=== PATIENT | female | born 1985 ===

== ENCOUNTER 2017-01-04 19:19 | Emergency (ER) | payer SELFPAY ==
[2017-01-04 19:19] VITALS: BMI 36.1
[2017-01-04 19:46] VITALS: BP 110/71; PULSE 95; RESP 16; TEMP 99.1; O2SAT 100
[2017-01-04] MEDS ORDERED: Sodium Chloride 0.9% 1,000 ML IV STA (21:28)
--- NOTE | 2017-01-04 21:32 | ED PDOC ---
HPI: General Adult Time Seen by Provider: 01/04/17 21:16 Chief Complaint (Nursing): Dizziness/Lightheaded Chief Complaint (Provider): dizziness History Per: Patient History/Exam Limitations: no limitations Onset/Duration Of Symptoms: Days (2 weeks), Waxing/Waning Current Symptoms Are (Timing): Still Present Additional History Per: Patient Additional Complaint(s): 31 y/o female presents for eval of intermittent dizziness x 2 weeks. Associated nausea/vomiting, and generalized headaches. Patient notes dizziness whether laying down at rest of moving about, states she feels like she is spinning. Denies fever, neck pain/stiffness, extremity numbness/weakness, vision changes, chest pain, shortness of breath, palpitations, abdominal pain, recent travel, sick contacts, urinary symptoms, vaginal bleeding/discharge. Past Medical History Reviewed: Historical Data, Nursing Documentation, Vital Signs Vital Signs: Last Vital Signs Temp 99.1 F 01/04/17 19:42 Pulse 95 H 01/04/17 19:42 Resp 16 01/04/17 19:42 BP 110/71 01/04/17 19:42 Pulse Ox 100 01/04/17 22:52 - Medical History PMH: No Chronic Diseases - Surgical History Surgical History: (3 months ago) Other surgeries: cataract left eye - Family History Family History: States: Unknown Family Hx - Immunization History Hx Tetanus Toxoid Vaccination: No Hx Influenza Vaccination: No Hx Pneumococcal Vaccination: No - Home Medications Home Medications: Ambulatory Orders Medication Instructions Recorded Pantoprazole Sodium [Protonix] 20 mg PO DAILY #15 ect 10/31/15 Polyethylene Glycol 3350 [Miralax] 17 gm PO DAILY #270 ml 10/31/15 Ciprofloxacin/Ciprofloxa HCl 500 mg PO BID #10 ter 04/07/16 [Ciprofloxacin] - Allergies Allergies/Adverse Reactions: Allergies Allergy/AdvReac Type Severity Reaction Status Date / Time No Known Allergies Allergy Verified 04/07/16 17:57 Review of Systems ROS Statement: Except As Marked, All Systems Reviewed And Found Negative Neurological: Positive for: Headache, Dizziness Physical Exam - Reviewed Nursing Documentation Reviewed: Yes Vital Signs Reviewed: Yes - Physical Exam Appears: Positive for: Well, Non-toxic, No Acute Distress Head Exam: Positive for: ATRAUMATIC, NORMAL INSPECTION, NORMOCEPHALIC Skin: Positive for: Normal Color Eye Exam: Positive for: Normal appearance, EOMI, Other (left eye cataract) ENT: Positive for: Normal ENT Inspection Cardiovascular/Chest: Positive for: Regular Rate, Rhythm Respiratory: Positive for: Normal Breath Sounds Gastrointestinal/Abdominal: Positive for: Normal Exam Back: Positive for: Normal Inspection Extremity: Positive for: Normal ROM Neurologic/Psych: Positive for: Alert, Oriented - Laboratory Results Result Diagrams: 01/04/17 22:16 01/04/17 22:16 Urine POC: Positive Urine dip results: Positive for: Leukocyte Esterase, Blood. Negative for: Nitrate, Ketones - ECG O2 Sat by Pulse Oximetry: 100 - Progress ED Course And Treament: labs, IV fluids, PO tylenol On re-eval, patient states she is feeing better; tolerating PO. Patient educated on findings, advised follow up Writing Manager. Take vitamins. Return to ED for worsening/concerning symptoms. Disposition - Clinical Impression Clinical Impression: Nausea/vomiting in - Patient ED Disposition Is Patient to be Admitted: No Counseled Patient/Family Regarding: Studies Performed, Diagnosis, Need For Followup - Disposition [facility]errals: [facility] [Outside] Disposition: Routine/Home Disposition Time: 00:34 Condition: IMPROVED Instructions: Morning Sickness (ED), (ED) Print Language: MACEDONIAN
[2017-01-04 22:18] LABS: BASO # 0.1 K/uL (0.0-0.2); EOS # 0.1 K/uL (0.0-0.7); EOS % 1.8 % (0.0-4.0); HEMATOCRIT 33.7 % (34.0-47.0); LYMPH # 2.4 K/uL (1.0-4.3); LYMPH % 29.1 % (20.0-40.0); MEAN CELL VOLUME 78.5 fl (81.0-99.0); MEAN CORPUSCULAR HGB CONC 31.9 g/dL (33.0-37.0); MEAN PLATELET VOLUME 9.3 fl (7.2-11.7); MONO # 0.6 K/uL (0.0-0.8); MONO % 7.4 % (0.0-10.0); NEUT # 4.9 K/uL (1.8-7.0); NEUT % 60.7 % (50.0-75.0); RED CELL DISTRIBUTION WIDTH 17.1 % (11.5-14.5); WHITE BLOOD COUNT 8.1 K/uL (4.8-10.8)
[2017-01-04 22:32] LABS: ALB/GLOB RATIO 1.3 (1.0-2.1); ALKALINE PHOSPHATASE 71 U/L (38-126); ALT/SGPT 43 U/L (9-52); AST/SGOT 26 U/L (14-36); BILIRUBIN,TOTAL 0.2 mg/dl (0.2-1.3); BLOOD UREA NITROGEN 8 mg/dl (7-17); CARBON DIOXIDE 23 mmol/L (22-30); CHLORIDE 105 mmol/L (98-107); GFR AFRICAN-AMERICAN > 60; GLUCOSE,RANDOM 92 mg/dL (65-105); POTASSIUM 4.1 MMOL/L (3.6-5.0); SODIUM 139 mmol/l (132-148); TOTAL PROTEIN 7.6 G/DL (6.3-8.2)
[2017-01-04 23:10] LABS: RBC URINE 1 /hpf (0-3); URINE BACTERIA RARE (<OCC); URINE BILIRUBIN NEGATIVE (NEGATIVE); URINE BLOOD NEGATIVE (NEGATIVE); URINE COLOR YELLOW (YELLOW); URINE GLUCOSE (UA) NEG (Normal); URINE KETONE NEGATIVE (NEGATIVE); URINE LEUKOCYTE ESTERASE SMALL Leu/uL (Negative); URINE PROTEIN NEGATIVE (NEGATIVE); URINE UROBILINOGEN 0.2-1.0 mg/dL (0.2-1.0); WBC URINE 1 /hpf (0-5)
== END 2017-01-05 00:38 | disposition home or self-care (01) ==
LOC: H.ER 19:19
DX: O21.0 Mild hyperemesis gravidarum (principal)
CPT/HCPCS: 80053; 81003; 84702; 85025; 87086; 96360; 99283; J2405; J7040

== ENCOUNTER 2017-09-24 16:28 | Emergency (ER) | payer SELFPAY ==
[2017-09-24 16:29] VITALS: BMI 36.1
[2017-09-24 16:39] VITALS: BP 109/74; PULSE 91; RESP 16; TEMP 98.3; O2SAT 100
--- NOTE | 2017-09-24 16:51 | ED PDOC ---
HPI: Female Pain Time Seen by Provider: 09/24/17 16:49 Chief Complaint (Nursing): Abdominal Pain Chief Complaint (Provider): with pain and bleeding History Per: Patient, Cash Posting Representative (CATHERINE Ramirez at bedside for Kenyan Translation) Additional Complaint(s): 32 year old female currently 9 weeks presents with abd pain and vaginal bleeding that started yesterday. Patient is . She denies any vaginal discharge, no dysuria, nausea or vomiting. OB: Clinic in [place] Past Medical History Reviewed: Historical Data, Nursing Documentation, Vital Signs Vital Signs: Last Vital Signs Temp 98.3 F 09/24/17 16:35 Pulse 91 H 09/24/17 16:35 Resp 16 09/24/17 16:35 BP 109/74 09/24/17 16:35 Pulse Ox 100 09/24/17 16:35 - Medical History PMH: No Chronic Diseases Other PMH: - Surgical History Surgical History: (x2) - Family History Family History: States: No Known Family Hx - Living Arrangements Living Arrangements: With Family - Social History Current smoker - smoking cessation education provided: No Alcohol: None Drugs: Denies - Home Medications Home Medications: Ambulatory Orders Medication Instructions Recorded Pantoprazole Sodium [Protonix] 20 mg PO DAILY #15 ect 10/31/15 Polyethylene Glycol 3350 [Miralax] 17 gm PO DAILY #270 ml 10/31/15 Ciprofloxacin/Ciprofloxa HCl 500 mg PO BID #10 ter 04/07/16 [Ciprofloxacin] - Allergies Allergies/Adverse Reactions: Allergies Allergy/AdvReac Type Severity Reaction Status Date / Time No Known Allergies Allergy Verified 04/07/16 17:57 Review of Systems ROS Statement: Except As Marked, All Systems Reviewed And Found Negative Constitutional: Negative for: Fever Cardiovascular: Negative for: Chest Pain Respiratory: Negative for: Cough Gastrointestinal: Negative for: Nausea, Vomiting Genitourinary Female: Positive for: Vaginal Bleeding, Pelvic Pain. Negative for : Dysuria, Frequency, Incontinence, Vaginal Discharge Physical Exam - Reviewed Nursing Documentation Reviewed: Yes Vital Signs Reviewed: Yes - Physical Exam Appears: Positive for: Well, Non-toxic, No Acute Distress Skin: Negative for: Rash Eye Exam: Positive for: Normal appearance Cardiovascular/Chest: Positive for: Regular Rate, Rhythm Respiratory: Positive for: Normal Breath Sounds. Negative for: Respiratory Distress Gastrointestinal/Abdominal: Positive for: Soft. Negative for: Tenderness, Distended, Guarding, Rebound Back: Negative for: L CVA Tenderness, R CVA Tenderness Extremity: Positive for: Normal ROM Neurologic/Psych: Positive for: Alert, Oriented - Laboratory Results Result Diagrams: 09/24/17 17:30 09/24/17 17:30 Urine POC: Positive Urine dip results: Positive for: Blood (large). Negative for: Leukocyte Esterase, Nitrate, Ketones, Glucose, Bilirubin, Protein - ECG O2 Sat by Pulse Oximetry: 100 Pulse Ox Interpretation: Normal - Other Rad TV OB US X-Ray: Read By Radiologist X-Ray Interpretation: see below Medical Decision Making Medical Decision Makin32 year old female with vaginal bleeding and abdominal pain Plan: Urine dip CBC CMP T&S OB TV US Beta quant US: FINDINGS: UTERUS: Measures 5.6 x 7.2 x 8.3 cm. Normal in size and appearance. No fibroid or other mass lesion seen. ENDOMETRIUM: Gestational sac, pole and yolk sac identified. pole measurement 0.34 cm corresponds to 6 weeks gestation. No cardiac activity documented. CERVIX: Closed cervix measures 2.7 cm RIGHT OVARY: Measures 2.2 x 2.7 x 3.5 cm. No solid mass. Normal flow. LEFT OVARY: Measures 2.2 x 2.6 x 3.2 cm. No solid mass. Normal flow. FREE FLUID: Trace free fluid identified in the pelvis/cul de sac. OTHER FINDINGS : None. IMPRESSION: Gestational sac, yolk sac and pole identified. Cardiac activity however is not identified and there is discordance between gestational age derived from the LMP of 11 weeks 4 days and at derived from the crown-rump length of 0.34 cm 6 weeks. Above results were d/w Dr Edmond, OB portrait consultant. Patient has threatened miscarriage vs early . He advised to have patient follow-up in clinic in 2-3 weeks. Patient made aware of all diagnostic testing results. All questions answered. Disposition - Clinical Impression Clinical Impression: Threatened miscarriage - Patient ED Disposition Is Patient to be Admitted: No Counseled Patient/Family Regarding: Studies Performed, Diagnosis, Need For Followup - Disposition Referrals: [facility] [Outside] Disposition: Routine/Home Disposition Time: 18:48 Condition: STABLE Additional Instructions: Tylenol for pain as needed. Follow up with clinic in 2-3 weeks. Instructions: Threatened Miscarriage (DC) Forms: [employer] (Kenyan) Print Language: NIGERIEN Results - Lab Results Lab Results: 09/24/17 09/24/17 09/24/17 17:30 17:30 17:30 WBC 8.9 RBC 4.23 Hgb 10.6 L Hct 33.6 L MCV 79.3 L MCH 25.0 L MCHC 31.5 L RDW 15.6 H Plt Count 262 MPV 9.3 Neut % (Auto) 67.4 Lymph % (Auto) 24.2 Barron % (Auto) 5.7 Eos % (Auto) 1.9 Baso % (Auto) 0.8 Neut # (Auto) 6.0 Lymph # (Auto) 2.2 Barron # (Auto) 0.5 Eos # (Auto) 0.2 Baso # (Auto) 0.1 Sodium 140 Potassium 3.4 L Chloride 107 Carbon Dioxide 20 L Anion Gap 16 BUN 9 Creatinine 0.5 L Est GFR ( Amer) > 60 Est GFR (Non-Af Amer) > 60 Random Glucose 116 H Calcium 9.0 Total Bilirubin 0.5 AST 22 ALT 31 Alkaline Phosphatase 56 Total Protein 7.5 Albumin 3.9 Globulin 3.6 Albumin/Globulin Ratio 1.1 Beta HCG, Quant 94213.00 Blood Type A POSITIVE Antibody Screen Negative BBK History Checked Patient has bt
[2017-09-24 17:37] LABS: BASO # 0.1 K/uL (0.0-0.2); BASO % 0.8 % (0.0-2.0); EOS # 0.2 K/uL (0.0-0.7); EOS % 1.9 % (0.0-4.0); HEMOGLOBIN 10.6 g/dL (12.0-16.0); LYMPH # 2.2 K/uL (1.0-4.3); LYMPH % 24.2 % (20.0-40.0); MEAN CELL VOLUME 79.3 fl (81.0-99.0); MEAN CORPUSCULAR HGB CONC 31.5 g/dL (33.0-37.0); MEAN PLATELET VOLUME 9.3 fl (7.2-11.7); MONO # 0.5 K/uL (0.0-0.8); MONO % 5.7 % (0.0-10.0); NEUT % 67.4 % (50.0-75.0); NRBC % 0.2 % (0.0-0.0); RBC 4.23 Mil/uL (3.80-5.20); RED CELL DISTRIBUTION WIDTH 15.6 % (11.5-14.5); WHITE BLOOD COUNT 8.9 K/uL (4.8-10.8)
[2017-09-24 17:47] LABS: ALB/GLOB RATIO 1.1 (1.0-2.1); ALBUMIN 3.9 g/dL (3.5-5.0); ALT/SGPT 31 U/L (9-52); AST/SGOT 22 U/L (14-36); BLOOD UREA NITROGEN 9 mg/dl (7-17); GFR AFRICAN-AMERICAN > 60; GFR NON-AFRICAN AMERICAN > 60
--- NOTE | 2017-09-24 18:44 | US ---
HISTORY: approx 9 weeks, pain and bleeding COMPARISON: None available. TECHNIQUE: Standard protocol for this study/examination. FINDINGS: UTERUS: Measures 5.6 x 7.2 x 8.3 cm. Normal in size and appearance. No fibroid or other mass lesion seen. ENDOMETRIUM: Gestational sac, pole and yolk sac identified. pole measurement 0.34 cm corresponds to 6 weeks gestation. No cardiac activity documented. CERVIX: Closed cervix measures 2.7 cm RIGHT OVARY: Measures 2.2 x 2.7 x 3.5 cm. No solid mass. Normal flow. LEFT OVARY: Measures 2.2 x 2.6 x 3.2 cm. No solid mass. Normal flow. FREE FLUID: Trace free fluid identified in the pelvis/cul de sac. OTHER FINDINGS: None. IMPRESSION: Gestational sac, yolk sac and pole identified. Cardiac activity however is not identified and there is discordance between gestational age derived from the LMP of 11 weeks 4 days and at derived from the crown-rump length of 0.34 cm 6 weeks.
== END 2017-09-24 19:13 | disposition home or self-care (01) ==
LOC: H.ER 16:28
DX: O20.0 Threatened abortion (principal); Z3A.11 11 weeks gestation of pregnancy